=== PATIENT | male | born 1990 | race Caucasian/White ===

== ENCOUNTER → 2017-05-18 | Outpatient (CLI) | payer MEDICAID | LOC: BMCIMAGING 10:01 | PROVIDERS: ATTEND Internal Medicine | DX: R05 Cough (principal) ==

== ENCOUNTER → 2017-08-14 | Outpatient (CLI) | payer MEDICAID | LOC: BMCIMAGING 07:45 | PROVIDERS: ATTEND Internal Medicine | DX: R10.11 Right upper quadrant pain (principal); R07.2 Precordial pain ==